=== PATIENT | male | born 1960 | race Caucasian/White ===

== ENCOUNTER 2016-05-25 12:47 | Day surgery (SDC) | payer OTHER ==
[~2016-05-25 12:47] MED LIST: RINGERS SOLUTION,LACTATED 1,000 ML IV PRN
[2016-05-25] MEDS ORDERED: ceFAZolin SODIUM 2 GM in DEXTROSE 5 % IN WATER 50 ML IV PRN ×2 (13:40)
[2016-05-25] MEDS ORDERED: BUPIVACAINE HCL/EPINEPHRINE 50 ML VIAL IJ ONE ×2 (15:10)
[2016-05-25] MEDS ORDERED: HYDROmorphone HCL 1 MG/ML DISP.SYRIN IV PRN (16:37)
[2016-05-25] MEDS ORDERED: PROMETHAZINE HCL 12.5 MG in DEXTROSE 5 % IN WATER 50 ML IV PRN ×2 (16:37)
[2016-05-25] MEDS ORDERED: ONDANSETRON HCL/PF 2 MG/ML VIAL IV PRN (16:37)
[2016-05-25] MEDS ORDERED: oxyCODONE HCL/ACETAMINOPHEN 1 TAB TABLET PO PRN (17:20)
[2016-05-25] MEDS ORDERED: MORPHINE SULFATE 2 MG/ML DISP.SYRIN IV PRN (17:21)
[2016-05-25 18:42] VITALS: BP 141/75
--- NOTE | 2016-05-25 19:28 | OR ---
Operative Report - Dictated Report Narrative: Date of operation: 05/25/2016 Preoperative diagnosis: Right inguinal hernia Postoperative diagnosis: Indirect right inguinal hernia Operation: Repair of indirect right inguinal hernia. (High ligation of the sac and mesh patch) Surgeon: ALEE Colvin MD Anesthesia: Gen. LMA Nikos Rogers CRNA Indications for procedure: The patient is a 56-year-old male with an enlarging and increasingly symptomatic right inguinal hernia. Findings: Indirect inguinal hernia Narrative of procedure: The patient was identified preoperatively, the surgical site was marked, and prior to the administration of anesthetic a multidisciplinary timeout was observed. The patient was placed supine, SCDs were applied, and 2 g of intravenous Ancef administered administered. Gen. LMA Anesthetic was administered. The patient's abdomen and genitalia were doubly prepped with Betadine solution and DuraPrep due to folliculitis. The right groin was isolated with 4 sterile towels. The remainder the patient was covered with a sterile disposable drape. A transverse skin incision was made over the midportion of the right inguinal canal. Dissection was carried through subcutaneous tissue with electrocautery until the fascia of the external oblique aponeurosis was encountered. This was incised in the direction of its fibers down to and including the external inguinal ring. The ilioinguinal nerve was identified and protected throughout the procedure. Cord structures were encircled at the pubic tubercle, and a [place] drain placed for traction. Inspection of the inguinal floor revealed it to be sound out to the internal inguinal ring. Inspection anteromedial aspect of the cord revealed an indirect hernia sac. The sac was opened, a forefinger inserted, and the cord structures dissected free back to the internal inguinal ring. The neck of the sac was then transfixed under direct vision with a suture ligature of 0 Ethibond. Excess sac was amputated. No specimen was submitted. The neck of the sac was then redirected superiorly and medially with the same suture of 0 Ethibond. A tailored mesh patch was placed in the inguinal floor and secured circumferentially to the pubic tubercle, along the conjoined tendon, and along the shelving border of the inguinal ligament with interrupted sutures of 0 Ethibond. The wings of the patch were wrapped around the cord structures and secured laterally with additional interrupted sutures of 0 Ethibond. The new internal inguinal ring was found to be of sufficient caliber to admit cord structures without undue constriction. The wound was inspected for hemostasis which appeared complete. The cord structures and ilioinguinal nerve were returned to an anatomic position. After receiving a correct sponge needle and instrument count attention was turned to closing the wound. The external oblique aponeurosis was approximated with a running suture of 2-0 Vicryl. Subcutaneous tissues were approximated with interrupted sutures of 2-0 chromic. The skin was secured with a running subcuticular suture of 4-0 Vicryl. The operative site was washed and dried. A dressing of Dermabond, folded 4 x 4, and Medipore tape was applied. The scrotum was checked to ensure that the testicles were in an anatomic position. The operative procedure was terminated at this point. The patient tolerated the anesthetic and procedure well without complication. There was no measurable blood loss. No specimen was submitted. 0.5% Marcaine with epinephrine was used for local anesthetic infiltration. The patient was transferred to the recovery room awake, extubated, and in stable condition. The patient remained stable throughout a period of postoperative observation. He was able to tolerate PO intake. His pain was controlled with PO Percocet. He was able to ambulate without assistance. The dressing remained dry. He was discharged home with instructions not to lift and not to drive. He is to keep the current dressing dry and intact for 48 hours, but then may shower and change the dressing daily or as needed. The patient was given a prescription for Percocet 5/325 mg #30 1-2 PO Q4-6hrs prn pain. The patient has phone numbers to call prn signs of wound infection or hematoma, and an office appointment was made for 1 week. Reviewed and electronically signed
== END 2016-05-25 12:48 | disposition home or self-care (01) ==
LOC: AMB 12:47
PROVIDERS: ATTEND Surgery
PROC: 0YU50JZ Supplement Right Inguinal Region with Synthetic Substitute, Open Approach (ICD-10-PCS; principal; 2016-05-25 14:00)
DX: K40.90 Unilateral inguinal hernia, without obstruction or gangrene, not specified as recurrent (principal); I10 Essential (primary) hypertension; E78.5 Hyperlipidemia, unspecified; K21.9 Gastro-esophageal reflux disease without esophagitis; F32.9 Major depressive disorder, single episode, unspecified; Z68.27 Body mass index [BMI] 27.0-27.9, adult